=== PATIENT | male | born 1965 | race Caucasian/White ===

== ENCOUNTER 2021-06-24 15:37 | Emergency (ER) | payer SELFPAY ==
[~2021-06-24] VITALS: Ht 165.1 cm; Wt 65.0 kg
[2021-06-24 15:39] VITALS: BP 134/90
[2021-06-24] MEDS ORDERED: ONDANSETRON HCL 4MG/2ML INJ IV STA (15:54)
[2021-06-24] MEDS ORDERED: SODIUM CHLORIDE 0.9% 1,000 ML IV ONE (16:00)
== END 2021-06-24 20:07 | disposition left against medical advice (07) ==
LOC: EDBD 15:37 → ER 15:37
DX: R41.82 Altered mental status, unspecified (principal); F19.10 Other psychoactive substance abuse, uncomplicated
CPT/HCPCS: 99283; J7030

== ENCOUNTER 2023-04-06 14:21 | Emergency (ER) | payer SELFPAY ==
[~2023-04-06] VITALS: Ht 165.1 cm; Wt 77.5 kg
[2023-04-06 14:27] VITALS: BP 110/68; PULSE 70; RESP 16; TEMP 97.8; O2SAT 95
[2023-04-06] MEDS ORDERED: IBUPROFEN 600MG TABLET PO STA (14:38)
[2023-04-06 15:28] LABS: BASOPHILS % 0.9 % (0.0-2.0); DIFFERENTIAL COMMENT 0; EOSINOPHILS % 1.4 % (0.0-5.0); HEMATOCRIT. 37.3 % (42.0-52.0); HEMOGLOBIN. 12.6 g/dL (14.0-18.0); LYMPHOCYTES % 35.6 % (20.0-50.0); MEAN CORPUSCULAR HEMOGLOBIN 34.3 pg (28.0-32.0); MEAN CORPUSCULAR HGB CONC 33.9 g/dL (31.0-37.0); MEAN CORPUSCULAR VOLUME 101.2 fL (80.0-94.0); MEAN PLATELET VOLUME 7.4 fl (7.4-10.4); MONOCYTES % 8.4 % (2.0-8.0); NEUTROPHILS % 53.7 % (40.0-76.0); PLATELET 188 x1000/uL (130-400); RED BLOOD CELL COUNT 3.69 mill/uL (4.7-6.1); RED CELL DISTRIBUTION WIDTH 13.8 % (11.6-14.6)
[2023-04-06 15:45] LABS: CHLORIDE 111 mEq/L (98-107); INDEX HEMOLYSI 1 (1-3); INDEX ICTERIC 1 (1-4); INDEX LIPEMIC 1 (1-3); POTASSIUM 3.3 mEq/L (3.5-5.1); SODIUM 141 mEq/L (136-145)
[2023-04-06] MEDS ORDERED: POTASSIUM CHLORIDE 20MEQ/PACKET PO NR (16:00)
[2023-04-06 16:02] LABS: ALANINE AMINOTRANSFERASE 61 IU/L (13-61); ALBUMIN 2.9 g/dL (3.4-5.0); ASPARTATE AMINOTRANSFERASE 164 IU/L (15-37); BILIRUBIN TOTAL 0.7 mg/dL (0.1-1.0); CARBON DIOXIDE 22 mEq/L (21-32); CREATININE 0.6 mg/dL (0.6-1.3); ETHANOL BLOOD 272 mg/dL (<10); GLUCOSE 150 mg/dL (70-105); PROTEIN TOTAL 6.4 g/dL (6.0-8.3); TROPONIN I HIGH SENSITIVITY 45 ng/L (<78); UREA NITROGEN BLOOD 7 mg/dL (7-21)
[2023-04-06 17:23] LABS: TROPONIN I HIGH SENSITIVITY 46 ng/L (<78)
== END 2023-04-06 19:28 | disposition home or self-care (01) ==
LOC: ER 14:21
DX: F10.129 Alcohol abuse with intoxication, unspecified (principal); F19.90 Other psychoactive substance use, unspecified, uncomplicated; Y90.8 Blood alcohol level of 240 mg/100 ml or more
CPT/HCPCS: 36415; 71045; 80053; 80320; 84484; 85025; 99284; G0480

== ENCOUNTER 2023-06-17 15:45 | Emergency (ER) | payer SELFPAY ==
[~2023-06-17] VITALS: Ht 167.6 cm; Wt 70.0 kg
[2023-06-17 15:49] VITALS: BP 122/82; PULSE 83; RESP 16; TEMP 97.7; O2SAT 96
== END 2023-06-17 17:47 | disposition left against medical advice (07) ==
LOC: ER 15:45
DX: F10.129 Alcohol abuse with intoxication, unspecified (principal); I10 Essential (primary) hypertension; F19.90 Other psychoactive substance use, unspecified, uncomplicated; Y90.9 Presence of alcohol in blood, level not specified
CPT/HCPCS: 99283